=== PATIENT | male | born 1965 | race Caucasian/White ===

== ENCOUNTER 2018-09-11 10:00 | Outpatient (REF) | payer BC, SELFPAY ==
[2018-09-11 21:40] LABS: Anion Gap 5.1 mmol/L (3-11); BUN 19 mg/dL (7-18); CO2 32.9 mmol/L (21.0-32.0); CREATININE 1.05 mg/dL (0.70-1.30); Chloride 102 mmol/L (98-107); Glucose 78 mg/dL (70-100); Potassium 4.5 mmol/L (3.5-5.1); Sodium 140 mmol/L (136-145)
== END 2018-09-11 10:20 ==
LOC: NCHCN 10:00
PROVIDERS: Visit Provider Internal Medicine
DX: I10 Essential (primary) hypertension (principal); I35.1 Nonrheumatic aortic (valve) insufficiency
CPT/HCPCS: 80048

== ENCOUNTER 2019-09-01 22:23 | Outpatient (REF) | payer BC, SELFPAY ==
[2019-09-01 22:27] LABS: Anion Gap 5.8 mmol/L (3-11); BUN 17 mg/dL (7-18); CO2 32.2 mmol/L (21.0-32.0); CREATININE 1.01 mg/dL (0.70-1.30); Calcium 9.4 mg/dL (8.5-10.1); Calculated LDL 101 mg/dL (<100); Chloride 103 mmol/L (98-107); Cholesterol 185 mg/dL (<200); Glucose 87 mg/dL (74-106); HDL Cholesterol 38 mg/dL (40-60); Sodium 141 mmol/L (136-145); Triglyceride 234 mg/dL (<150)
== END 2019-09-01 22:43 ==
LOC: NCHCN 22:23
PROVIDERS: Visit Provider Internal Medicine
DX: Z00.00 Encounter for general adult medical examination without abnormal findings (principal); I10 Essential (primary) hypertension; I35.1 Nonrheumatic aortic (valve) insufficiency
CPT/HCPCS: 80048; 80061

== ENCOUNTER 2020-05-09 15:49 | Outpatient (REF) | payer BC, SELFPAY ==
[2020-05-09 22:39] LABS: Anion Gap 3.5 mmol/L (3-11); BUN 20 mg/dL (7-18); CO2 33.5 mmol/L (21.0-32.0); CREATININE 1.01 mg/dL (0.70-1.30); Calcium 9.7 mg/dL (8.5-10.1); Calculated LDL 119 mg/dL (<100); Chloride 103 mmol/L (98-107); Cholesterol 192 mg/dL (<200); Glucose 85 mg/dL (74-106); HDL Cholesterol 42 mg/dL (40-60); Potassium 4.2 mmol/L (3.5-5.1); Sodium 140 mmol/L (136-145); Triglyceride 158 mg/dL (<150)
== END 2020-05-09 16:09 ==
LOC: NCHCN 15:49
PROVIDERS: Visit Provider Internal Medicine
DX: E78.5 Hyperlipidemia, unspecified (principal); I10 Essential (primary) hypertension
CPT/HCPCS: 80048; 80061

== ENCOUNTER 2020-08-15 09:18 | Outpatient (REF) | payer BC, SELFPAY ==
[2020-08-15 14:00] LABS: Calculated LDL 43 mg/dL (<100); Cholesterol 111 mg/dL (<200); HDL Cholesterol 48 mg/dL (40-60); Triglyceride 100 mg/dL (<150)
== END 2020-08-15 09:38 ==
LOC: NCHCN 09:18
PROVIDERS: Visit Provider Internal Medicine
DX: E78.5 Hyperlipidemia, unspecified (principal)
CPT/HCPCS: 80061

== ENCOUNTER 2021-06-19 18:31 | Outpatient (REF) | payer BC, SELFPAY ==
[2021-06-19 20:23] LABS: Absolute Basophil Count 0.03 10^3/uL (0.0-0.2); Absolute Eosinophil Count 0.19 10^3/uL (0.0-0.7); Absolute Lymphocyte Count 1.53 10^3/uL (1.2-3.4); Absolute Monocyte Count 0.38 10^3/uL (0.1-0.8); Basophils % 0.6; Eosinophils % 3.6; Lymphocytes % 29.3; MPV 10.1 fL (8.0-11.0); Monocytes % 7.3; Neutrophils % 59.2; Nucleated RBC 0 %; Platelet Count 190 10^3/uL (130-400); RDW-SD 41.3 fL; WBC 5.23 10^3/uL (4.4-10.8)
[2021-06-19 20:56] LABS: ALT 46 U/L (16-63); AST 22 U/L (15-37); Albumin 4.5 g/dL (3.4-5.0); Alkaline Phosphatase 63 U/L (46-116); Anion Gap 7.9 mmol/L (3-11); BUN 21 mg/dL (7-18); Bilirubin, Total 0.9 mg/dL (0.2-1.0); CO2 31.1 mmol/L (21.0-32.0); Calcium 9.6 mg/dL (8.5-10.1); Calculated LDL 50 mg/dL (<100); Chloride 104 mmol/L (98-107); Cholesterol 119 mg/dL (<200); Glucose 93 mg/dL (74-106); HDL Cholesterol 48 mg/dL (40-60); Potassium 4.1 mmol/L (3.5-5.1); Sodium 143 mmol/L (136-145); Total Protein 7.3 g/dL (6.4-8.2); Triglyceride 105 mg/dL (<150)
== END 2021-06-19 18:32 | disposition home or self-care (01) ==
LOC: NCHCN 18:31
PROVIDERS: Visit Provider Internal Medicine
DX: I10 Essential (primary) hypertension (principal); E78.5 Hyperlipidemia, unspecified; D75.1 Secondary polycythemia
CPT/HCPCS: 80053; 80061; 85025

== ENCOUNTER 2022-06-22 13:41 | Outpatient (REF) | payer BC, SELFPAY ==
[2022-06-22 15:23] LABS: Anion Gap 4.4 mmol/L (3-11); BUN 21 mg/dL (7-18); CO2 31.6 mmol/L (21.0-32.0); Calcium 9.3 mg/dL (8.5-10.1); Chloride 102 mmol/L (98-107); Estimated GFR 88.33 (mL/min/1.73m2); Glucose 94 mg/dL (74-106); Potassium 4.2 mmol/L (3.5-5.1); Sodium 138 mmol/L (136-145)
[2022-06-25 11:17] LABS: PSA, Screening 4.2 ng/mL (<=3.5)
== END 2022-06-22 13:42 | disposition home or self-care (01) ==
LOC: NCHCN 13:41
PROVIDERS: Visit Provider Internal Medicine
DX: I10 Essential (primary) hypertension (principal); Z12.5 Encounter for screening for malignant neoplasm of prostate
CPT/HCPCS: 80048; 84153

== ENCOUNTER 2022-09-03 17:15 | Outpatient (REF) | payer BC, SELFPAY ==
[2022-09-04 17:45] LABS: PSA, Diagnostic 3.4 ng/mL (<=3.5)
== END 2022-09-03 17:16 | disposition home or self-care (01) ==
LOC: NCHCN 17:15
PROVIDERS: Visit Provider Internal Medicine
DX: R97.20 Elevated prostate specific antigen [PSA] (principal)
CPT/HCPCS: 84153

== ENCOUNTER 2023-06-25 19:02 | Outpatient (REF) | payer BC, SELFPAY ==
[2023-06-25 14:52] LABS: HCT 47.7 % (40.0-50.0); HGB 16.7 g/dL (13.5-17.5); MCH 33.2 pg (27.0-33.0); MCV 95 fL (80-95); MPV 9.5 fL (8.0-11.0); Platelet Count 175 10^3/uL (130-400); RBC 5.03 10^6/uL (4.36-5.78); RDW 12.1 % (11.8-14.1); RDW-SD 41.7 fL; WBC 5.09 10^3/uL (4.4-10.8)
[2023-06-25 15:24] LABS: ALT 33 U/L (16-63); AST 29 U/L (15-37); Albumin 4.1 g/dL (3.4-5.0); Alkaline Phosphatase 62 U/L (46-116); Anion Gap 4.3 mmol/L (3-11); BUN 17 mg/dL (7-18); Bilirubin, Total 0.6 mg/dL (0.2-1.0); CO2 29.7 mmol/L (21.0-32.0); CREATININE 1.1 mg/dL (0.70-1.30); Calcium 10.1 mg/dL (8.5-10.1); Chloride 104 mmol/L (98-107); Glucose 68 mg/dL (74-106); Potassium 3.9 mmol/L (3.5-5.1); Sodium 138 mmol/L (136-145); Total Protein 7.1 g/dL (6.4-8.2)
[2023-06-26 18:47] LABS: PSA, Screening 4.1 ng/mL (<=3.5)
== END 2023-06-25 19:03 | disposition home or self-care (01) ==
LOC: NCHCN 19:02
PROVIDERS: Visit Provider Internal Medicine
DX: I10 Essential (primary) hypertension (principal); E78.5 Hyperlipidemia, unspecified; Z12.5 Encounter for screening for malignant neoplasm of prostate
CPT/HCPCS: 80053; 84153; 85027

== ENCOUNTER 2024-01-06 09:15 | Outpatient (REF) | payer BC, SELFPAY ==
[2024-01-06 23:04] LABS: PSA, Diagnostic 5.5 ng/mL (<=3.5)
== END 2024-01-06 09:16 | disposition home or self-care (01) ==
LOC: NCHCN 09:15
PROVIDERS: Visit Provider Internal Medicine
DX: R97.20 Elevated prostate specific antigen [PSA] (principal)
CPT/HCPCS: 84153

== ENCOUNTER 2024-07-03 14:54 | Outpatient (REF) | payer BC, SELFPAY ==
[2024-07-03 15:48] LABS: HCT 49.6 % (40.0-50.0); HGB 17.1 g/dL (13.5-17.5); MCH 33.1 pg (27.0-33.0); MCHC 34.5 % (32.0-36.0); MCV 96 fL (80-95); MPV 9.9 fL (8.0-11.0); Platelet Count 165 10^3/uL (130-400); RBC 5.17 10^6/uL (4.36-5.78); RDW 11.9 % (11.8-14.1); RDW-SD 42.3 fL; WBC 4.93 10^3/uL (4.4-10.8)
[2024-07-03 15:59] LABS: ALT 42 U/L (16-63); AST 25 U/L (15-37); Albumin 4.3 g/dL (3.4-5.0); Alkaline Phosphatase 71 U/L (46-116); Anion Gap 9.9 mmol/L (3-11); BUN 14 mg/dL (7-18); Bilirubin, Total 0.72 mg/dL (0.2-1.0); CO2 29.1 mmol/L (21.0-32.0); CREATININE 1.2 mg/dL (0.70-1.30); Calcium 9.6 mg/dL (8.5-10.1); Calculated LDL 46 mg/dL (<100); Chloride 106 mmol/L (98-107); Cholesterol 117 mg/dL (<200); Glucose 103 mg/dL (74-106); HDL Cholesterol 52 mg/dL (40-60); Potassium 4.2 mmol/L (3.5-5.1); Sodium 145 mmol/L (136-145); Triglyceride 96 mg/dL (<150)
[2024-07-03 22:01] LABS: PSA, Screening 5.8 ng/mL (<=3.5)
== END 2024-07-03 14:55 | disposition home or self-care (01) ==
LOC: NCHCN 14:54
PROVIDERS: PCP Internal Medicine; Visit Provider Internal Medicine
DX: Z12.5 Encounter for screening for malignant neoplasm of prostate (principal); Z79.01 Long term (current) use of anticoagulants; Z95.2 Presence of prosthetic heart valve; E78.5 Hyperlipidemia, unspecified
CPT/HCPCS: 80053; 80061; 84153; 85027

== ENCOUNTER 2025-01-08 15:39 | Outpatient (REF) | payer BC, SELFPAY ==
[2025-01-08 22:33] LABS: PSA, Diagnostic 5.9 ng/mL (<=3.5)
== END 2025-01-08 15:40 | disposition home or self-care (01) ==
LOC: LBN 15:39
PROVIDERS: PCP Internal Medicine; Visit Provider Urology
DX: R97.20 Elevated prostate specific antigen [PSA] (principal)
CPT/HCPCS: 84153

== ENCOUNTER 2025-07-09 09:10 | Outpatient (REF) | payer BC, SELFPAY ==
[2025-07-09 15:29] LABS: HCT 49.6 % (40.0-50.0); HGB 16.9 g/dL (13.5-17.5); MCH 32.6 pg (27.0-33.0); MCHC 34.1 % (32.0-36.0); MCV 96 fL (80-95); MPV 9.2 fL (8.0-11.0); Platelet Count 184 10^3/uL (130-400); RBC 5.19 10^6/uL (4.36-5.78); RDW 11.9 % (11.8-14.1); RDW-SD 41.6 fL; WBC 4.63 10^3/uL (4.4-10.8)
[2025-07-09 17:29] LABS: ALT 39 U/L (10-49); AST 31 U/L (<34); Albumin 4.6 g/dL (3.2-5.0); Alkaline Phosphatase 64 U/L (46-116); Anion Gap 9.1 mmol/L (3-11); BUN 19 mg/dL (9-23); Bilirubin, Total 1.00 mg/dL (0.2-1.2); CO2 27.9 mmol/L (20.0-31.0); Calcium 9.9 mg/dL (8.3-10.6); Chloride 106 mmol/L (98-107); Cholesterol 119 mg/dL (<200); Glucose 101 mg/dL (74-106); HDL Cholesterol 46 mg/dL (>40); Potassium 3.7 mmol/L (3.5-5.1); Sodium 143 mmol/L (136-145); Total Protein 7.0 g/dL (5.7-8.2)
[2025-07-09 23:09] LABS: PSA, Diagnostic 6.6 ng/mL (<=3.5)
== END 2025-07-09 09:11 | disposition home or self-care (01) ==
LOC: NCHCN 09:10
PROVIDERS: PCP Internal Medicine; Visit Provider Internal Medicine
DX: I10 Essential (primary) hypertension (principal); E78.5 Hyperlipidemia, unspecified; R97.20 Elevated prostate specific antigen [PSA]
CPT/HCPCS: 80053; 80061; 85027; 84153